=== PATIENT | male | born 1965 | race Caucasian/White ===

== ENCOUNTER 2016-03-26 06:34 | Emergency (ER) | payer OTHER ==
--- NOTE | 2016-03-26 08:47 | ED NURSING NOTES ---
Clinical Report - Nurses [facility] [address] [place] [address] 03/26/2016 6:36 Patient: ALHAJI ESTRELLA TRIAGE Triage time 07:25. Acuity: LEVEL 4. Chief Complaint: SORE THROAT and (Onset of cough started 3 days ago, sore throat started yesterday.). Alert. No acute distress. SEPSIS SCREEN: Sepsis Screen: negative. Infection suspected/documented. --07:31 Steve Mike R.N. 07:25 03/26/16. BP: 123/85 (large adult cuff) taken on the left arm, via an automated monitor, while sitting. HR: 108 (tachycardic). RR: 18 (regular, unlabored and normal). O2 saturation: 98% on room air. Temp: 97.6 F (oral). Pain level now: 08/04. --07:31 Steve Mike R.N. Weight: 145.1 kg stated. Height/Length: 71 inches Per Patient. BMI: 44.6. --07:27 Steve Mike R.N. Medications Crestor Oral. --07:29 Steve Mike R.N. Lisinopril Oral. --07:29 Steve Mike R.N. MetFORMIN HCl Oral. --07:29 Steve Mike R.N. Glimepiride Oral. --07:30 Steve Mike R.N. Allergies Sodium Penathol. --07:30 Steve Mike R.N. History Arrived by private vehicle. Historian: patient. Unaccompanied. Primary physician (Anibal Villanueva). The patient has had measured temperature of 101 F tympanically. He has had a cough. He has had vomiting (yesterday). The vomiting has occurred only once. 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 (Robitussin (mild improvement)). PAST MEDICAL HX: Immunizations: seasonal influenza. SOCIAL HX: Never smoker. No alcohol use or drug use. He has not traveled outside the [place] The patient was not exposed to MRSA. No infectious disease exposure. ABUSE ASSESSMENT: Abuse assessment: The patient was asked "Do you feel safe in your home?" and "Has anyone hurt you or threatened to hurt you?". No report of abuse. SELF HARM ASSESSMENT: A self harm assessment was performed. The patient answered "no" to the question "Do you have thoughts of harming or killing yourself?" and "Have you recently had thoughts about harming or killing others?". FALL RISK ASSESSMENT: Fall risk assessment completed. No fall risk identified. NUTRITIONAL RISK ASSESSMENT: The nutritional risk assessment revealed no deficiencies. LEARNING NEEDS ASSESSMENT: The learning needs assessment revealed no barriers. FUNCTIONAL ASSESSMENT: Functional assessment performed: wears glasses- this visual impairment is an ongoing problem. SKIN INTEGRITY ASSESSMENT: Skin integrity risk assessment completed. No skin integrity risk identified. --07:31 Steve Mike R.N. PROBLEMS: Hypertension. Hypercholesterolemia. Diabetes Mellitus. --07:30 Steve Mike R.N. ADDITIONAL SURGERIES: Appendectomy. Lower spinal fusion. --07:30 Steve Mike R.N. Assessment GENERAL / NEURO / PSYCH: Alert. Oriented X 4. Appears in no acute distress. Rita Coma Scale: 15- eyes open spontaneously (4); best verbal response- oriented x 4 (5); best motor response- obeys commands (6). Patient appears calm and cooperative. RESPIRATORY: Respirations not labored. SKIN: Skin is warm and dry. --07:31 Steve Mike R.N. Interventions ID band on patient. Patient ID band checked for patient name and birthdate: patient confirmed. Flu swab obtained by RN via nasal swab. Labeled in the presence of the patient and sent to lab. Patient ID band checked for patient name and birthdate: patient confirmed. Throat swab obtained for rapid strep and culture; labeled in the presence of the patient and sent to lab. To waiting room. --07:31 Steve Mike R.N. DISPOSITION / DISCHARGE Departure time: 904Mar 26 2016. Condition at departure: improved and stable. No learning barriers present. Discharge instructions provided and reviewed with the patient. Reviewed medication(s) side effects, precautions, dosing and course information. Prescription(s) given to the patient. Patient verbalized understanding. Written instructions provided in Kenyan. The patient was discharged by the physician. He was discharged home. He left the Emergency Department ambulatory and via private vehicle. --18:04 Noris Butt R.N. 18:02 03/26/16. BP: 124/78. HR: 91. RR: 16. O2 saturation: 98% on room air. Temp: 98.6 F (oral). --18:04 Noris Butt R.N. Locked/Released at 03/26/2016 18:04 by Noris Butt R.N.
--- NOTE | 2016-03-26 08:47 | ED NURSING NOTES ---
Clinical Report - Nurses [facility] [address] [place] [address] 03/26/2016 6:36 Patient: ALHAJI ESTRELLA TRIAGE Triage time 07:25. Acuity: LEVEL 4. Chief Complaint: SORE THROAT and (Onset of cough started 3 days ago, sore throat started yesterday.). Alert. No acute distress. SEPSIS SCREEN: Sepsis Screen: negative. Infection suspected/documented. --07:31 Steve Mike R.N. 07:25 03/26/16. BP: 123/85 (large adult cuff) taken on the left arm, via an automated monitor, while sitting. HR: 108 (tachycardic). RR: 18 (regular, unlabored and normal). O2 saturation: 98% on room air. Temp: 97.6 F (oral). Pain level now: 08/04. --07:31 Steve Mike R.N. Weight: 145.1 kg stated. Height/Length: 71 inches Per Patient. BMI: 44.6. --07:27 Steve Mike R.N. Medications Crestor Oral. --07:29 Steve Mike R.N. Lisinopril Oral. --07:29 Steve Mike R.N. MetFORMIN HCl Oral. --07:29 Steve Mike R.N. Glimepiride Oral. --07:30 Steve Mike R.N. Allergies Sodium Penathol. --07:30 Steve Mike R.N. History Arrived by private vehicle. Historian: patient. Unaccompanied. Primary physician (Anibal Villanueva). The patient has had measured temperature of 101 F tympanically. He has had a cough. He has had vomiting (yesterday). The vomiting has occurred only once. 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 (Robitussin (mild improvement)). PAST MEDICAL HX: Immunizations: seasonal influenza. SOCIAL HX: Never smoker. No alcohol use or drug use. He has not traveled outside the [place] The patient was not exposed to MRSA. No infectious disease exposure. ABUSE ASSESSMENT: Abuse assessment: The patient was asked "Do you feel safe in your home?" and "Has anyone hurt you or threatened to hurt you?". No report of abuse. SELF HARM ASSESSMENT: A self harm assessment was performed. The patient answered "no" to the question "Do you have thoughts of harming or killing yourself?" and "Have you recently had thoughts about harming or killing others?". FALL RISK ASSESSMENT: Fall risk assessment completed. No fall risk identified. NUTRITIONAL RISK ASSESSMENT: The nutritional risk assessment revealed no deficiencies. LEARNING NEEDS ASSESSMENT: The learning needs assessment revealed no barriers. FUNCTIONAL ASSESSMENT: Functional assessment performed: wears glasses- this visual impairment is an ongoing problem. SKIN INTEGRITY ASSESSMENT: Skin integrity risk assessment completed. No skin integrity risk identified. --07:31 Steve Mike R.N. PROBLEMS: Hypertension. Hypercholesterolemia. Diabetes Mellitus. --07:30 Steve Mike R.N. ADDITIONAL SURGERIES: Appendectomy. Lower spinal fusion. --07:30 Steve Mike R.N. Assessment GENERAL / NEURO / PSYCH: Alert. Oriented X 4. Appears in no acute distress. Rita Coma Scale: 15- eyes open spontaneously (4); best verbal response- oriented x 4 (5); best motor response- obeys commands (6). Patient appears calm and cooperative. RESPIRATORY: Respirations not labored. SKIN: Skin is warm and dry. --07:31 Steve Mike R.N. Interventions ID band on patient. Patient ID band checked for patient name and birthdate: patient confirmed. Flu swab obtained by RN via nasal swab. Labeled in the presence of the patient and sent to lab. Patient ID band checked for patient name and birthdate: patient confirmed. Throat swab obtained for rapid strep and culture; labeled in the presence of the patient and sent to lab. To waiting room. --07:31 Steve Mike R.N. DISPOSITION / DISCHARGE Departure time: 904Mar 26 2016. Condition at departure: improved and stable. No learning barriers present. Discharge instructions provided and reviewed with the patient. Reviewed medication(s) side effects, precautions, dosing and course information. Prescription(s) given to the patient. Patient verbalized understanding. Written instructions provided in Bahraini. The patient was discharged by the physician. He was discharged home. He left the Emergency Department ambulatory and via private vehicle. --18:04 Noris Butt R.N. 18:02 03/26/16. BP: 124/78. HR: 91. RR: 16. O2 saturation: 98% on room air. Temp: 98.6 F (oral). --18:04 Noris Butt R.N. Locked/Released at 03/26/2016 18:04 by Noris Butt R.N.
--- NOTE | 2016-03-26 08:47 | ED CLINICAL REPORT ---
Clinical Report - Physicians/Mid Levels [facility] [address] [place] [address] 03/26/2016 6:36 Patient: ALHAJI ESTRELLA Time Seen: 08:25; initial patient contact. Arrived- By private vehicle. Historian- patient. HISTORY OF PRESENT ILLNESS Chief Complaint: SORE THROAT. This started about 1 week ago and is still present and worsening. It was gradual in onset. Pain described as mild. The patient has had a sore throat, nasal congestion and a nasal discharge. No toothache, swollen jaw or face, jaw pain or facial pain. Similar symptoms previously: None. Recent medical care: Not recently seen/assessed. REVIEW OF SYSTEMS No fever, difficulty breathing or enlarged lymph nodes. He has had a cough. All systems otherwise negative, except as recorded above. PAST HISTORY Hypertension. Hypercholesterolemia. Diabetes Mellitus. ADDITIONAL SURGERIES: Appendectomy. Lower spinal fusion. Medications: Glimepiride Oral. MetFORMIN HCl Oral. Lisinopril Oral. Crestor Oral. Allergies: Sodium Penathol. SOCIAL HISTORY Never smoker. No alcohol use or drug use. ADDITIONAL NOTES The nursing notes have been reviewed with agreement regarding the chief complaint, PMH and patient medications and allergies. PHYSICAL EXAM Vital Signs: 03/26/2016 07:25 BP: 123/85. HR: 108. RR: 18. O2 saturation: 98%. Temp: 97.6 F. Pain level now: 6/10. Have been reviewed. Blood pressure normal. Tachycardic. Respiratory rate normal. Temperature normal. Oxygen saturation normal. Appearance: Alert. No acute distress. Head: Normal external inspection. ENT: Ears normal. Mild generalized pharyngeal erythema. The mucous membranes are not dry. Neck: No adenopathy. CVS: Normal heart rate and rhythm. Heart sounds normal. Respiratory: No respiratory distress. Breath sounds normal. Skin: Normal skin color. No rash. Neuro: Oriented X 3. LABS, X-RAYS, AND EKG Laboratory Tests: Rapid Influenza Screen: (NICHOLAS: 03/26/2016 07:32) ( MsgRcvd 03/26/2016 07:53) Final results SPECIMEN DESCRIPTION: FLU Test Result Flag Units (Reference) RAPID INFLUENZA SCREEN DATE: 03/26/16 INFLUENZA A: NEGATIVE SCREEN FOR INFLUENZA A INFLUENZA B: NEGATIVE SCREEN FOR INFLUENZA B Culture, Strep Screen: (NICHOLAS: 03/26/2016 07:32) ( MsgRcvd 03/26/2016 07:53) Final results Test Result Flag Units (Reference) RAPID STREP SCREEN - THROAT DATE: 03/26/16 NEGATIVE SCREEN: RAPID STREP SCREEN NEGATIVE; CONFIRMATION TO FOLLOW . PROGRESS AND PROCEDURES Disposition: Discharged home in good condition. Condition: good. CLINICAL IMPRESSION 03/26/2016 07:25 BP: 123/85. HR: 108. RR: 18. O2 saturation: 98%. Temp: 97.6 F. Pain level now: 08/04. Vital Signs: have been reviewed. Blood pressure normal. Tachycardic. Respiratory rate normal. Temperature normal. Oxygen saturation normal. INSTRUCTIONS Do not work today. Your Current Medications: CONTINUE TAKING THE FOLLOWING MEDICATIONS: Crestor Oral. Glimepiride Oral. Lisinopril Oral. MetFORMIN HCl Oral. Prescription Medications: Azithromycin 500 mg tablets: take 1 orally every day for 3 days. Total course 3 days. No refills. Flonase nasal spray: 2 sprays to each nostril daily. Dispense one (1) unit. No refills. Substitution is permissible Follow-up: Follow up with your doctor if not better. Call for an appointment. Blood pressure screening was not performed during this visit because the patient has an active diagnosis of hypertension. (Electronically signed by Mati Ramey Dr. 03/26/2016 11:04)
--- NOTE | 2016-03-26 08:47 | ED ORDER SUMMARY ---
..... Patient: ALHAJI ESTRELLA OrderSheet [facility] VisitID: [id number] [address] [place] [address] 51y, M Registration Date/Time: 03/26/2016 ORDER SHEET Weight: 145.1 kg (stated) Allergies: Sodium Penathol GENERAL ORDERS: Culture, Strep Screen Urgent (07:23 03/26/2016 Beverly Seay verbal order read back to Caio Mercado) (Ack 7:28 LMuller) (7:33 JCee R.N.) Rapid Influenza Screen (Nasal Pharyngeal) (flu) Urgent (07:33 03/26/2016 Beverly Seay verbal order read back to Caio Mercado) (7:33 JDeSaundraa R.N.) MEDICATION ORDERS: IV FLUIDS: ORDER SHEET NOTES: [Electronically signed by Mati Ramey Dr. (11:04 03/26/2016)] [Electronically signed by Noris Butt R.N. (18:04 03/26/2016)] [Electronically locked/signed by Noris Butt R.N. (18:04 03/26/2016)]
--- NOTE | 2016-03-26 08:47 | ED ORDER SUMMARY ---
..... Patient: ALHAJI ESTRELLA OrderSheet [facility] VisitID: [id number] [address] [place] [address] 51y, M Registration Date/Time: 03/26/2016 ORDER SHEET Weight: 145.1 kg (stated) Allergies: Sodium Penathol GENERAL ORDERS: Culture, Strep Screen Urgent (07:23 03/26/2016 Beverly Seay verbal order read back to Caio Mercado) (Ack 7:28 LMuller) (7:33 JCee R.N.) Rapid Influenza Screen (Nasal Pharyngeal) (flu) Urgent (07:33 03/26/2016 Beverly Seay verbal order read back to Caio Mercaod) (7:33 JDeSaundraa R.N.) MEDICATION ORDERS: IV FLUIDS: ORDER SHEET NOTES: [Electronically signed by Mati Ramey Dr. (11:04 03/26/2016)] [Electronically signed by Noris Butt R.N. (18:04 03/26/2016)] [Electronically locked/signed by Noris Butt R.N. (18:04 03/26/2016)]
--- NOTE | 2016-03-26 18:04 | ED DISCHARGE INSTRUCTIONS ---
Patient: ALHAJI ESTRELLA General Instructions [facility] VisitID: [id number] [address] [place] [address] 51y, M Registration Date/Time: 03/26/2016 03/26/2016 07:25 BP: 123/85. HR: 108. RR: 18. O2 saturation: 98%. Temp: 97.6 F. Pain level now: 10. Vital Signs: have been reviewed. Blood pressure normal. Tachycardic. Respiratory rate normal. Temperature normal. Oxygen saturation normal. INSTRUCTIONS Do not work today. Your Current Medications: CONTINUE TAKING THE FOLLOWING MEDICATIONS: Crestor Oral. Glimepiride Oral. Lisinopril Oral. MetFORMIN HCl Oral. Prescription Medications: Azithromycin 500 mg tablets: take 1 orally every day for 3 days. Total course 3 days. No refills. Flonase nasal spray: 2 sprays to each nostril daily. Dispense one (1) unit. No refills. Substitution is permissible Follow-up: Follow up with your doctor if not better. Call for an appointment. Blood pressure screening was not performed during this visit because the patient has an active diagnosis of hypertension. ADDITIONAL INFORMATION Azithromycin Oral tablet What is this medicine? AZITHROMYCIN (az ith jessica MYE sin) is a macrolide antibiotic. It is used to treat or prevent certain kinds of bacterial infections. It will not work for colds, flu, or other viral infections. How should I use this medicine? Take this medicine by mouth with a full glass of water. Follow the directions on the prescription label. The tablets can be taken with food or on an empty stomach. If the medicine upsets your stomach, take it with food. Take your medicine at regular intervals. Do not take your medicine more often than directed. Take all of your medicine as directed even if you think your are better. Do not skip doses or stop your medicine early. Talk to your perfect binder setter regarding the use of this medicine in children. Special care may be needed. What side effects may I notice from receiving this medicine? Side effects that you should report to your doctor or health respiratory care instructor as soon as possible: allergic reactions like skin rash, itching or hives, swelling of the face, lips, or tongue confusion, nightmares or hallucinations dark urine difficulty breathing hearing loss irregular heartbeat or chest pain pain or difficulty passing urine redness, blistering, peeling or loosening of the skin, including inside the mouth white patches or sores in the mouth yellowing of the eyes or skin Side effects that usually do not require medical attention (report to your doctor or health respiratory care instructor if they continue or are bothersome): diarrhea dizziness, drowsiness headache stomach upset or vomiting tooth discoloration vaginal irritation What may interact with this medicine? Do not take this medicine with any of the following medications: lincomycin This medicine may also interact with the following medications: amiodarone antacids cyclosporine digoxin magnesium nelfinavir phenytoin warfarin What if I miss a dose? If you miss a dose, take it as soon as you can. If it is almost time for your next dose, take only that dose. Do not take double or extra doses. Where should I keep my medicine? Keep out of the reach of children. Store at room temperature between 15 and 30 degrees C (59 and 86 degrees F). Throw away any unused medicine after the expiration date. What should I tell my health care provider before I take this medicine? They need to know if you have any of these conditions: kidney disease liver disease irregular heartbeat or heart disease an unusual or allergic reaction to azithromycin, erythromycin, other macrolide antibiotics, foods, dyes, or preservatives or trying to get breast-feeding What should I watch for while using this medicine? Tell your doctor or health respiratory care instructor if your symptoms do not improve. Do not treat diarrhea with over the counter products. Contact your doctor if you have diarrhea that lasts more than 2 days or if it is severe and watery. This medicine can make you more sensitive to the sun. Keep out of the sun. If you cannot avoid being in the sun, wear protective clothing and use sunscreen. Do not use sun lamps or tanning beds/booths. Fluticasone Propionate Nasal spray, solution What is this medicine? FLUTICASONE (floo TIK a sone) is a corticosteroid. It helps decrease inflammation in your nose. This medicine is used to treat the symptoms of allergies like sneezing, itching, and runny or stuffy nose. How should I use this medicine? This medicine is for use in the nose. Follow the directions on your prescription label. This medicine works best if used regularly. Do not use more often than directed. Make sure that you are using your nasal spray correctly. Ask you doctor or health care provider if you have any questions. Talk to your perfect binder setter regarding the use of this medicine in children. While this drug may be prescribed for children as young as 4 years old for selected conditions, precautions do apply. What side effects may I notice from receiving this medicine? Side effects that you should report to your doctor or health respiratory care instructor as soon as possible: allergic reactions like skin rash, itching or hives, swelling of the face, lips, or tongue changes in vision flu-like symptoms white patches or sores in the mouth or nose Side effects that usually do not require medical attention (report to your doctor or health respiratory care instructor if they continue or are bothersome): burning or irritation inside the nose or throat cough headache nosebleed unusual taste or smell What may interact with this medicine? ketoconazole metyrapone some medicines for HIV vaccines What if I miss a dose? If you miss a dose, use it as soon as you remember. If it is almost time for your next dose, use only that dose and continue with your regular schedule. Do not use double or extra doses. Where should I keep my medicine? Keep out of the reach of children. Store at room temperature between 15 and 30 degrees C (59 and 86 degrees F). Throw away any unused medicine after the expiration date. What should I tell my health care provider before I take this medicine? They need to know if you have any of these conditions: infection, like tuberculosis, herpes, or fungal infection recent surgery on nose or sinuses taking corticosteroid by mouth an unusual or allergic reaction to fluticasone, steroids, other medicines, foods, dyes, or preservatives or trying to get breast-feeding What should I watch for while using this medicine? Visit your doctor or health respiratory care instructor for regular checks on your progress. Some symptoms may improve within 12 hours after starting use. Check with your doctor or health respiratory care instructor if there is no improvement in your condition after 3 weeks of use. Do not come in contact with people who have chickenpox or the measles while you are taking this medicine. If you do, call your doctor right away. You have been given the following additional information: Azithromycin Oral tablet Fluticasone Propionate Nasal spray, solution Do not work today. (Electronically signed by Mati Ramey Dr. 03/26/2016 11:04)
--- NOTE | 2016-03-26 18:04 | ED DISCHARGE INSTRUCTIONS ---
Patient: ALHAJI ESTRELLA General Instructions [facility] VisitID: [id number] [address] [place] [address] 51y, M Registration Date/Time: 03/26/2016 03/26/2016 07:25 BP: 123/85. HR: 108. RR: 18. O2 saturation: 98%. Temp: 97.6 F. Pain level now: 10. Vital Signs: have been reviewed. Blood pressure normal. Tachycardic. Respiratory rate normal. Temperature normal. Oxygen saturation normal. INSTRUCTIONS Do not work today. Your Current Medications: CONTINUE TAKING THE FOLLOWING MEDICATIONS: Crestor Oral. Glimepiride Oral. Lisinopril Oral. MetFORMIN HCl Oral. Prescription Medications: Azithromycin 500 mg tablets: take 1 orally every day for 3 days. Total course 3 days. No refills. Flonase nasal spray: 2 sprays to each nostril daily. Dispense one (1) unit. No refills. Substitution is permissible Follow-up: Follow up with your doctor if not better. Call for an appointment. Blood pressure screening was not performed during this visit because the patient has an active diagnosis of hypertension. ADDITIONAL INFORMATION Azithromycin Oral tablet What is this medicine? AZITHROMYCIN (az ith jessica MYE sin) is a macrolide antibiotic. It is used to treat or prevent certain kinds of bacterial infections. It will not work for colds, flu, or other viral infections. How should I use this medicine? Take this medicine by mouth with a full glass of water. Follow the directions on the prescription label. The tablets can be taken with food or on an empty stomach. If the medicine upsets your stomach, take it with food. Take your medicine at regular intervals. Do not take your medicine more often than directed. Take all of your medicine as directed even if you think your are better. Do not skip doses or stop your medicine early. Talk to your child day care teacher regarding the use of this medicine in children. Special care may be needed. What side effects may I notice from receiving this medicine? Side effects that you should report to your doctor or health career information specialist as soon as possible: allergic reactions like skin rash, itching or hives, swelling of the face, lips, or tongue confusion, nightmares or hallucinations dark urine difficulty breathing hearing loss irregular heartbeat or chest pain pain or difficulty passing urine redness, blistering, peeling or loosening of the skin, including inside the mouth white patches or sores in the mouth yellowing of the eyes or skin Side effects that usually do not require medical attention (report to your doctor or health career information specialist if they continue or are bothersome): diarrhea dizziness, drowsiness headache stomach upset or vomiting tooth discoloration vaginal irritation What may interact with this medicine? Do not take this medicine with any of the following medications: lincomycin This medicine may also interact with the following medications: amiodarone antacids cyclosporine digoxin magnesium nelfinavir phenytoin warfarin What if I miss a dose? If you miss a dose, take it as soon as you can. If it is almost time for your next dose, take only that dose. Do not take double or extra doses. Where should I keep my medicine? Keep out of the reach of children. Store at room temperature between 15 and 30 degrees C (59 and 86 degrees F). Throw away any unused medicine after the expiration date. What should I tell my health care provider before I take this medicine? They need to know if you have any of these conditions: kidney disease liver disease irregular heartbeat or heart disease an unusual or allergic reaction to azithromycin, erythromycin, other macrolide antibiotics, foods, dyes, or preservatives or trying to get breast-feeding What should I watch for while using this medicine? Tell your doctor or health career information specialist if your symptoms do not improve. Do not treat diarrhea with over the counter products. Contact your doctor if you have diarrhea that lasts more than 2 days or if it is severe and watery. This medicine can make you more sensitive to the sun. Keep out of the sun. If you cannot avoid being in the sun, wear protective clothing and use sunscreen. Do not use sun lamps or tanning beds/booths. Fluticasone Propionate Nasal spray, solution What is this medicine? FLUTICASONE (floo TIK a sone) is a corticosteroid. It helps decrease inflammation in your nose. This medicine is used to treat the symptoms of allergies like sneezing, itching, and runny or stuffy nose. How should I use this medicine? This medicine is for use in the nose. Follow the directions on your prescription label. This medicine works best if used regularly. Do not use more often than directed. Make sure that you are using your nasal spray correctly. Ask you doctor or health care provider if you have any questions. Talk to your child day care teacher regarding the use of this medicine in children. While this drug may be prescribed for children as young as 4 years old for selected conditions, precautions do apply. What side effects may I notice from receiving this medicine? Side effects that you should report to your doctor or health career information specialist as soon as possible: allergic reactions like skin rash, itching or hives, swelling of the face, lips, or tongue changes in vision flu-like symptoms white patches or sores in the mouth or nose Side effects that usually do not require medical attention (report to your doctor or health career information specialist if they continue or are bothersome): burning or irritation inside the nose or throat cough headache nosebleed unusual taste or smell What may interact with this medicine? ketoconazole metyrapone some medicines for HIV vaccines What if I miss a dose? If you miss a dose, use it as soon as you remember. If it is almost time for your next dose, use only that dose and continue with your regular schedule. Do not use double or extra doses. Where should I keep my medicine? Keep out of the reach of children. Store at room temperature between 15 and 30 degrees C (59 and 86 degrees F). Throw away any unused medicine after the expiration date. What should I tell my health care provider before I take this medicine? They need to know if you have any of these conditions: infection, like tuberculosis, herpes, or fungal infection recent surgery on nose or sinuses taking corticosteroid by mouth an unusual or allergic reaction to fluticasone, steroids, other medicines, foods, dyes, or preservatives or trying to get breast-feeding What should I watch for while using this medicine? Visit your doctor or health career information specialist for regular checks on your progress. Some symptoms may improve within 12 hours after starting use. Check with your doctor or health career information specialist if there is no improvement in your condition after 3 weeks of use. Do not come in contact with people who have chickenpox or the measles while you are taking this medicine. If you do, call your doctor right away. You have been given the following additional information: Azithromycin Oral tablet Fluticasone Propionate Nasal spray, solution Do not work today. (Electronically signed by Mati Ramey Dr. 03/26/2016 11:04)
--- NOTE | 2016-03-26 18:05 | ED MAR SUMMARY ---
..... Medication Administration Record [facility] [address] [place], [place] [id number] Patient: ALHAJI ESTRELLA Visit ID: [id number] 51y, M Weight: 145.1 kg Height/Length: 71 in BMI: 44.6 ALLERGIES: Sodium Penathol
--- NOTE | 2016-03-26 18:05 | ED MAR SUMMARY ---
..... Medication Administration Record [facility] [address] [place], [place] [id number] Patient: ALHAJI ESTRELLA Visit ID: [id number] 51y, M Weight: 145.1 kg Height/Length: 71 in BMI: 44.6 ALLERGIES: Sodium Penathol
--- NOTE | 2016-03-26 18:05 | ED MED RECONCILIATION SUMMARY ---
Patient: ALHAJI ESTRELLA Medication Reconciliation Report [facility] VisitID: [id number] [address] [place] [address] 51y, M Registration Date/Time: 03/26/2016 Weight: 145.1 kg Height/Length: 71 in. BMI: 44.6 ALLERGIES: Sodium Penathol The patient's Home Medications are listed below: CONTINUE TAKING THE FOLLOWING MEDICATIONS: Crestor Oral Glimepiride Oral Lisinopril Oral MetFORMIN HCl Oral The source(s) of the original Home Medication information: Not obtained. The following Medications were given to the patient in the Emergency Department: None. The following Medications were prescribed to the patient: Azithromycin 500 mg tablets: take 1 orally every day for 3 days. Total course 3 days. No refills. -- Mati Ramey Dr. Flonasgianni nasal spray: 2 sprays to each nostril daily. Dispense one (1) unit. No refills. Substitution is permissible -- Mati Ramey Dr.
--- NOTE | 2016-03-26 18:05 | ED MED RECONCILIATION SUMMARY ---
Patient: ALHAJI ESTRELLA Medication Reconciliation Report [facility] VisitID: [id number] [address] [place] [address] 51y, M Registration Date/Time: 03/26/2016 Weight: 145.1 kg Height/Length: 71 in. BMI: 44.6 ALLERGIES: Sodium Penathol The patient's Home Medications are listed below: CONTINUE TAKING THE FOLLOWING MEDICATIONS: Crestor Oral Glimepiride Oral Lisinopril Oral MetFORMIN HCl Oral The source(s) of the original Home Medication information: Not obtained. The following Medications were given to the patient in the Emergency Department: None. The following Medications were prescribed to the patient: Azithromycin 500 mg tablets: take 1 orally every day for 3 days. Total course 3 days. No refills. -- Mati Ramey Dr. Flonasgianni nasal spray: 2 sprays to each nostril daily. Dispense one (1) unit. No refills. Substitution is permissible -- Mati Ramey Dr.
== END 2016-03-26 09:05 | disposition home or self-care (01) ==
LOC: ED SRH 06:34
DX: J01.20 Acute ethmoidal sinusitis, unspecified (principal); E11.9 Type 2 diabetes mellitus without complications; I10 Essential (primary) hypertension; Z79.84 Long term (current) use of oral hypoglycemic drugs; Z79.899 Other long term (current) drug therapy; Z88.8 Allergy status to other drugs, medicaments and biological substances
CPT/HCPCS: 90154; 90159; 90627; 91400